=== PATIENT | male | born 1990 | race Caucasian/White ===

== ENCOUNTER 2016-08-07 23:31 | Emergency (ER) | payer SELFPAY ==
[2016-08-08] MEDS ORDERED: IBUPROFEN 800 MG TAB PO STA (00:04)
--- NOTE | 2016-08-08 00:06 | ED ---
URI HPI - General Chief Complaint: Upper Respiratory Infection Stated Complaint: congestion/chills Time Seen by Provider: 08/07/16 23:47 Source: patient, RN notes reviewed Mode of arrival: ambulatory Limitations: no limitations - History of Present Illness Initial Comments: Patient is a 26-year-old male presents to the emergency room for evaluation of fever and body aches. Patient states he woke up this morning not feeling well. Patient states he took a cough medicine with no relief of symptoms. Patient states he's been laying in bed all day and has been having all over body aches. Patient states his bones hurt. Patient denies throat pain or ear pain. Patient states he's had a productive cough. Patient does admit to smoking 1 pack per day. Patient denies taking Tylenol or Motrin recently. Patient denies receiving his influenza vaccine this year. Patient denies nausea, vomiting, abdominal pain, diarrhea, constipation. - Related Data Previous Rx's Medication Instructions Recorded Oseltamivir [Tamiflu] 75 mg PO Q12HR 5 Days 08/08/16 Allergies Allergy/AdvReac Type Severity Reaction Status Date / Time No Known Allergies Allergy Verified 08/07/16 23:38 Review of Systems ROS Statement: Those systems with pertinent positive or pertinent negative responses have been documented in the HPI. ROS Other: All systems not noted in ROS Statement are negative. Past Medical History Past Medical History: No Reported History History of Any Multi-Drug Resistant Organisms: None Reported Past Surgical History: No Surgical Hx Reported Past Psychological History: No Psychological Hx Reported Smoking Status: Current every day smoker Past Alcohol Use History: None Reported Past Drug Use History: Marijuana General Exam - General Exam Comments Initial Comments: Laying in exam room, no acute distress. Limitations: no limitations General appearance: alert, in no apparent distress Head exam: Present: atraumatic, normocephalic, normal inspection Eye exam: Present: normal appearance ENT exam: Present: normal exam Neck exam: Present: normal inspection Respiratory exam: Present: normal lung sounds bilaterally. Absent: respiratory distress Cardiovascular Exam: Present: normal rhythm, tachycardia, normal heart sounds Extremities exam: Present: normal inspection Back exam: Present: normal inspection Neurological exam: Present: alert, oriented X3, CN II-XII intact, normal gait Psychiatric exam: Present: normal affect, normal mood Skin exam: Present: warm, dry, intact, normal color. Absent: rash Course Vital Signs 08/07/16 08/08/16 23:38 00:47 Temperature 100 F H 101 F H Pulse Rate 120 H 100 Respiratory 20 16 Rate Blood Pressure 137/76 120/80 O2 Sat by Pulse 97 Oximetry Medical Decision Making - Medical Decision Making Patient is a 26-year-old male presents to the emergency room for an elevation of fever and bodyaches. Influenza A positive. Will place patient on Tamiflu. Advised patient to alternate Tylenol and Motrin. Patient states he understands everything that was discussed with him. Return parameters discussed. Case discussed with Dr. Rasmussen. - Lab Data Lab Results 08/07/16 Range/Units 23:48 Influenza Type A RNA Detected A (Not Detectd) Influenza Type B (PCR) Not Detected (Not Detectd) Disposition Clinical Impression: Influenza A Disposition: HOME SELF-CARE Condition: Good Instructions: Influenza (ED) Additional Instructions: Alternate Tylenol and Motrin every 3 hours. Take Tamiflu as directed. Drink plenty of fluids. Please follow up with primary care provider in 1-2 days. If any new symptom arises or symptoms worsen, return to ER as soon as possible. Prescriptions: Oseltamivir [Tamiflu] 75 mg PO Q12HR 5 Days Referrals: None,Stated [Primary Care Provider] - 1-2 days Time of Disposition: 00:35
[2016-08-08 00:48] VITALS: BP 120/80; PULSE 100; RESP 16; TEMP 101
== END 2016-08-08 00:47 | disposition home or self-care (01) ==
LOC: EC 23:31
DX: J11.1 Influenza due to unidentified influenza virus with other respiratory manifestations (principal); F17.200 Nicotine dependence, unspecified, uncomplicated
CPT/HCPCS: 87502; 99283